=== PATIENT | female | born 1975 | race Caucasian/White ===

== ENCOUNTER → 2023-07-09 11:07 | Outpatient (REF) | payer OTHER, SELFPAY | LOC: WDC 11:07 | PROVIDERS: ATTENDING PHYSICIAN Specialist | DX: R92.2 Inconclusive mammogram (principal) | CPT/HCPCS: 76641 ==

== ENCOUNTER → 2024-02-12 10:07 | Outpatient (REF) | payer OTHER, SELFPAY ==
[2024-02-13 08:12] LABS: H. pylori Breath Test Positive (Negative)
[2024-02-14 19:41] LABS: Endomysial IgA Antibody Titer <1:10 (<1:10)
[2024-02-15 00:14] LABS: IgA 187 mg/dl (70-400)
== END ==
LOC: REG 10:07
PROVIDERS: ATTENDING PHYSICIAN Internal Medicine Gastroenterology; FAMILY PHYSICIAN Family Medicine
DX: K59.04 Chronic idiopathic constipation (principal); R10.10 Upper abdominal pain, unspecified
CPT/HCPCS: 36415; 74018; 82784; 83013; 83516; 86231

== ENCOUNTER → 2024-02-17 13:27 | Outpatient (REF) | payer OTHER, SELFPAY ==
[2024-02-19 23:01] LABS: H. pylori Antigen, Fecal Positive (Negative)
== END ==
LOC: REG 13:27
PROVIDERS: ATTENDING PHYSICIAN Internal Medicine Gastroenterology; FAMILY PHYSICIAN Family Medicine
DX: R10.10 Upper abdominal pain, unspecified (principal)
CPT/HCPCS: 87338

== ENCOUNTER → 2024-02-23 09:55 | Outpatient (REF) | payer OTHER, SELFPAY | LOC: RAD 09:55 | PROVIDERS: ATTENDING PHYSICIAN Obstetrics & Gynecology; FAMILY PHYSICIAN Family Medicine | DX: N39.0 Urinary tract infection, site not specified (principal); R39.89 Other symptoms and signs involving the genitourinary system; N39.3 Stress incontinence (female) (male) | CPT/HCPCS: 76770 ==

== ENCOUNTER → 2024-03-10 13:24 | Outpatient (REF) | payer OTHER, SELFPAY | LOC: RAD 13:24 | PROVIDERS: ATTENDING PHYSICIAN Internal Medicine Gastroenterology; FAMILY PHYSICIAN Family Medicine | DX: R10.10 Upper abdominal pain, unspecified (principal) | CPT/HCPCS: 76700 ==

== ENCOUNTER → 2024-07-13 13:32 | Outpatient (REF) | payer OTHER, SELFPAY | LOC: WDC 13:32 | PROVIDERS: ATTENDING PHYSICIAN Physician Assistant | DX: Z12.31 Encounter for screening mammogram for malignant neoplasm of breast (principal) | CPT/HCPCS: 77063; 77067 ==

== ENCOUNTER 2025-01-20 06:22 | Day surgery (SDC) | payer OTHER, SELFPAY | END 2025-01-20 14:41 | disposition home or self-care (01) | LOC: GI 06:22 | PROVIDERS: ATTENDING PHYSICIAN Internal Medicine Gastroenterology; FAMILY PHYSICIAN Family Medicine | DX: Z12.11 Encounter for screening for malignant neoplasm of colon (principal); D12.2 Benign neoplasm of ascending colon; K63.5 Polyp of colon; Q43.8 Other specified congenital malformations of intestine; K64.8 Other hemorrhoids; K22.70 Barrett's esophagus without dysplasia; K29.50 Unspecified chronic gastritis without bleeding; K22.89 Other specified disease of esophagus; K44.9 Diaphragmatic hernia without obstruction or gangrene; R12 Heartburn | CPT/HCPCS: 45385; 45380; 43239; 88305; 88342 ==

== ENCOUNTER 2025-01-22 15:52 | Emergency (ER) | payer OTHER, SELFPAY ==
[2025-01-22 16:03] VITALS: BP 110/74
[2025-01-22 16:23] LABS: Hematocrit 37.5 % (37.0-47.0); Hemoglobin 12.7 g/dL (12.0-16.0); Mean Corp Hgb Conc. 33.9 g/dL (33.0-37.0); Mean Corpuscular Volume 88.7 fL (81.0-99.0); Nucleated Red Blood Cells % 0 %; Platelet Count 254 10^3/uL (130-400); Red Cell Dist. Width 12.3 % (11.5-14.5)
[2025-01-22 16:36] LABS: ALT (SGPT) 20 U/L (0-35); AST (SGOT) 25 U/L (14-36); Albumin 4.8 g/dl (3.5-5.0); Alkaline Phosphatase 52 U/L (38-126); Blood Urea Nitrogen 7 mg/dl (7-17); Calcium 9.6 mg/dl (8.4-10.2); Carbon Dioxide 27 mmol/L (22-30); Chloride 104 mmol/L (98-107); Glucose 97 mg/dl (70-99); Potassium 4.3 mmol/L (3.5-5.1); Sodium 139 mmol/L (135-145); Total Protein 7.8 g/dl (6.3-8.2); eGFR > 60.00
--- NOTE | 2025-01-22 18:01 | ED.GENMED ---
History of Present Illness
General
Chief Complaint: Abdominal Symptoms
Time Seen by Provider: 01/22/25 17:43
History of Present Illness
History of Present Illness:
49-year-old female presents for evaluation of abdominal pain and chills that began after undergoing colonoscopy and endoscopy 2 days ago. She had biopsies of the esophagus as well as polypectomies in the colon, states yesterday she awoke with left
flank and left upper quadrant pain that progressed to generalized abdominal pain. Chills began today. Her symptoms are essentially resolved at this point she denies complaints currently. No rectal bleeding or vomiting
Review of Systems
Review of Systems
Allergies reviewed?: Yes
All Other Systems: ROS reviewed and negative except as documented in HPI and ROS
Phy Exam
Physical Exam
Physical Exam:
GEN: Well appearing, NAD, WDWN
HEENT: Oral mucosa moist, no scleral icterus
Cardiac: Regular rate
Lung: No respiratory distress, no tachypnea
Abdomen: Soft, grossly nontender, no rigidity
MSK: No gross deformity or injuries
Skin: Good color, no pallor or jaundice, no rashes
Neuro: AO x3, moves all extremities freely
Psych: Calm, cooperative
Course
Orders/Labs/Results
Orders:
Orders
01/22/25 16:13
Complete Blood Count/With Diff Urgent
Comprehensive Metabolic Panel Urgent
Lactate Level [Lactic Acid] Urgent
01/22/25 18:44
Blood Culture Q30M
DARRYL Source: Blood/Venous
Specimen Description:
01/22/25 18:48
Blood Culture Q30M
DARRYL Source: Blood/Venous
Specimen Description:
Abnormal Lab Results
01/22/25
16:13
Monocytes % 10.0 H %
(1.7-9.3)
01/22/25 16:13
01/22/25 16:13
Vital Signs
Initial and Last Documented VS:
Initial Vital Signs
Temp Pulse Resp BP Pulse Ox
97.6 F 91 17 110/74 96
01/22/25 16:03 01/22/25 16:03 01/22/25 16:03 01/22/25 16:03 01/22/25 16:03
Last Documented Vital Signs
Temp Pulse Resp BP Pulse Ox
97.6 F 73 18 116/79 99
01/22/25 16:03 01/22/25 18:33 01/22/25 18:33 01/22/25 18:33 01/22/25 18:33
MDM/Problems Addressed
MDM/Problems Addressed:
I did suggest to the patient that we obtain a CT scan to assess for splenic injury versus colonic perforation however she does not feel this is necessary given that her symptoms are improved. This is reasonable at this time, did send blood cultures
due to the polypectomies and biopsy given her report of chills to rule out spontaneous bacteremia. She will be discharged home, strict ED return parameters discussed. I feel she is reliable to represent to the ER with any worsening symptoms
*Pulse Oximetry
SaO2: 96
Oxygen Mode of Delivery: Room air
Patient hypoxic: no
*Critical Care Note
Total Time (30-74mins, 75-104mins- exclusive of procedures): Not Applicable
ED Attending Note
-
Portions of this chart may have been created with voice recognition software.� Occasional wrong word or��sound alike� substitutions may have occurred due to the inherent limitations of voice recognition software.
Discharge Plan
Departure
Patient Disposition: Home (Routine Discharge)
Date of Disposition: 01/22/25
Time of Disposition: 18:38
Patient with high blood pressure during this ER visit?: No
Discharge Problem:
Abdominal pain, Chills
Instructions: Abdominal Pain
Referrals:
Pcp Selection Not Required, [Other]
Kevin Andrews MD [Family Provider, Family Practice]
Activity Restrictions/Additional Instructions:
We discussed the main complications seen after colonoscopy tend to be intestinal perforations and injuries to the spleen. We discussed the potential benefit of a CT scan however you have declined which is reasonable at this time given that your
pain is improved. We also sent blood culture test to assess for bloodstream infection given that you had biopsies performed. If you have any symptoms to worsen at any point in time do not hesitate to return to the emergency department
Interventions
Interventions:
*Risk Screen - Suicide Last Done: 01/22/25 16:07
*General Assessment Last Done: 01/22/25 16:07
*Neglect/Abuse Screening Last Done: 01/22/25 16:07
*ED- Fall Risk Assessment Last Done: 01/22/25 18:30
*ED COVID-19 Vaccine History Last Done: 01/22/25 16:07
*Nursing Disposition Last Done: 01/22/25 18:40
HV-Xydoik-Qlmffoqnjx Assessment Last Done: 01/22/25 19:16
Discharge Date and Time
Discharge Date/Time: 01/22/25 18:40
Print Language: TURKISH
[2025-01-22 18:33] VITALS: BP 116/79
[2025-01-22 18:38] VITALS: BMI 20.7
== END 2025-01-22 18:40 | disposition home or self-care (01) ==
LOC: EMR 15:52
PROVIDERS: EMERGENCY PHYSICIAN Student in an Organized Health Care Education/Training Program; FAMILY PHYSICIAN Family Medicine
DX: R10.9 Unspecified abdominal pain (principal); R68.83 Chills (without fever)
CPT/HCPCS: 99283; 80053; 83605; 85025; 87040